=== PATIENT | female | born 1960 | race Caucasian/White ===

== ENCOUNTER → 2018-08-10 | Outpatient (CLI) | payer OTHER ==
[~2018-08-10] VITALS: Ht 167.6 cm; Wt 85.3 kg
[~2018-08-10] MED LIST: ACETAMINOPHEN325 M1 PO; ADVIL PO; ANEFRIN NASAL; BACTRIM 400-801 EACH PO; CELEXA 10 MG TA10 MG PO; CELEXA 20 MG TA20 M1 PO; CENTRUM SILVER1 EAC1 PO; CENTRUM SILVER1 EAC4 PO; CLARITIN10 MG PO; COLACE100 MG PO; COUMADIN 1MG TAB1 M1 PO; COUMADIN 4 MG TA4 M1 PO; COUMADIN 5 MG TA5 M1 PO; DECONGESTANT NA15 ML SPRAY; DESYREL50 MG PO; DULOXETINE HCL60 MG PO; ENOXAPARIN100 MG/1 M SUBQ; ENOXAPARIN80 MG/0.8; FEMARA2.5 MG PO; FLONASE 0.05%50 MCG NASAL; GINKGO BILOBA120 M1 PO; IBUPROFEN 600600 M1 PO; IP-6 INOSITOL PO; JANTOVEN2 MG PO; LETROZOLE2.5 MG PO; MEDROLDOSEPACK PO; MOBIC7.5 MG PO; MOTION RELIEF25 MG PO; NASAL DECONGEST10 MG IH; NEOMYCIN/BACIT3.5 G1; NICOTINE1 EAC1 TD; NOLVADEX10 MG PO; NOLVADEX20 MG PO; NORCO 5-325 TA1 EACH PO; NORFLEX100 MG PO; PERCOCET 7.5-31 EACH PO; PREDNISONE 20 M20 MG PO; PYRIDOXINE HCL100 MG PO; SENNA PO; SUPER B COMPLE1 EAC2 PO; TRAMADOL 50 MG50 MG PO; TRAZODONE 150150 M1 PO; TRAZODONE PO; UNICOMPLEX M TA1 TA1 PO; VITAMIN B-12500 MCG PO; VITAMIN B-6250 MG PO; VITAMIN D1000 UNI1 PO; VITAMIN D31000 UNI2 PO; XANAX 0.5 MG0.5 MG PO; ZANAFLEX4 MG PO; [UNRECOGNIZED DRUG - REMARK]
--- NOTE | ~2018-08-10 | PATH ---
[facility] [address] [place] [address] PATHOLOGY RPT PROCEDURE Name: JAMARI VALLES Room #: REG CL M..#: [id number] Admission: 08/10/18 Date of : 60 Discharge: Report #: [id number] Path Case #: [id number] [facility] Accession Number: [id number] . 01 Material submitted: . PART A: RANDOM BX OF COLON R/O MICROSCOPIC COLITIS PART B: BX OF POLYP IN TRANSVERSE COLON . 01 Clinical history: . Pre-OP DX: Abdominal pain, diarrhea, HX colon cancer Post-OP DX: Sigmoid colon polyp, diverticulosis, Hx of colon cancer, acute diverticulitis . 02 Diagnosis: A. Colonic mucosa "random colon biopsies": - No obvious diagnostic changes. - There is no evidence of acute cryptitis, granulomas, adenomatous change, changes of microscopic colitis or malignancy. . B. Colonic mucosa "biopsy of polyp in transverse colon": - Tubular adenoma. - There is no evidence of high-grade dysplasia or malignancy. (SHA:pit 08/11/2018) QTP/08/11/2018 . 02 Electronically signed: . Gabriele Lund MD, Pathologist NPI- [id number] . 01 Gross description: . A. Received in formalin labeled "Jamari Valles, random colon BX, rule out microscopic colitis," are 4 segments of spring soft tissue measuring 1.3 x 0.6 x 0.2 cm in aggregate dimensions and ranging from 0.3 to 0.7 cm in maximum dimension. The specimen is submitted entirely in cassette A1. . B. Received in formalin labeled "ReenaJamari, BX of polyp in transverse colon," is a single segment of spring soft tissue measuring 0.5 cm in maximum dimension. The specimen is entirely submitted in cassette B1. (TSD; 08/10/2018) TOB/TOB . 02 Pathologist provided ICD-10: D12.3, R10.9 . 02 CPT . 716669, 129917 Specimen Comment: A courtesy copy of [place] [address] PATHOLOGY RPT PROCEDURE Name: JAMARI VALLES MAHESH Room #: REG CLRafael Gunter#: [id number] Admission: 08/10/18 Date of : 60 Discharge: Report #: [id number] Path Case #: [id number] Specimen Comment: [phone], . Specimen Comment: Report sent to / DR BURCIAGA Specimen Comment: A duplicate report has been generated due to demographic updates. Performed at: [address], [place] [id number] MD Kee Tobar MD Phone: [phone] Performed at: [address] [id number] MD Va Méndez MD Phone: [phone]
--- NOTE | ~2018-08-10 | P ---
[facility] [address] PROCEDURE REPORT Name: JAMARI SHAH Room #: REG [facility]#: [id number] Admission: 08/10/18 Attend Phys: Dominik Valentine Discharge: Date of : 60 Report #: [id number] THIS REPORT FOR: //name// CC: Dominik Mehta MD DATE OF SERVICE: 08/10/2018 PROCEDURE PERFORMED: Colonoscopy with biopsies. HISTORY OF PRESENT ILLNESS: The patient is a 58-year-old female with previous history of colon cancer in 2010, status post right hemicolectomy, presents for routine followup. She does report low crampy abdominal pain as well as intermittent diarrhea. She denies any blood in her stools. No fevers or chills. The symptoms have been ongoing for the past 2-3 weeks. Plan is for colonoscopy. DESCRIPTION OF PROCEDURE: The risks and benefits of the procedure were explained to the patient, those risks including but not limited to bleeding, perforation, and the risk of sedation. She understood these risks and gave informed consent. Sedation was given using propofol per Anesthesia. Next, a digital rectal exam was initially performed, which was normal. Next, using a standard Olympus colonoscope, the scope was placed in the patient's anus and advanced under direct vision to the right colon, at which point, the surgical anastomosis was noted. This was well healed and widely patent. In the transverse colon, a 4 mm sessile polyp was noted and removed with cold forceps. Because of her history of recent diarrhea, random colon biopsies were also obtained today to rule out the possibility of microscopic colitis. Multiple diverticula were noted in the descending and sigmoid colon, one area with acute diverticulitis was noted in the sigmoid colon with inflammation and some purulent drainage. The rectal mucosa was normal. On retroflexion, small nonbleeding internal hemorrhoids were noted. The scope was then withdrawn and the procedure terminated. The patient tolerated the procedure well. IMPRESSION: 1. Surgical changes in the right colon again noted, consistent with right hemicolectomy. 2. Small transverse colon polyp. 3. Diverticulosis with one area of diverticulitis noted in the sigmoid colon. 4. Internal hemorrhoids. RECOMMENDATIONS: 1. Await biopsy results. 2. Repeat colonoscopy in 2 years. 3. We will treat with Cipro and Flagyl for the next [address] [address] PROCEDURE REPORT Name: JAMARI SHAH MAHESH Room #: REG CLRafael Gunter#: [id number] Admission: 08/10/18 Attend Phys: Dominik Valentine Discharge: Date of : 60 Report #: [id number] Thank you for allowing me to participate in her care. By: 1113 [id number] Dominik Chino MD /nt
== END | disposition home or self-care (01) ==
LOC: GI 08:47
DX: D12.3 Benign neoplasm of transverse colon (principal); K57.30 Diverticulosis of large intestine without perforation or abscess without bleeding; K64.8 Other hemorrhoids; G62.9 Polyneuropathy, unspecified; F17.210 Nicotine dependence, cigarettes, uncomplicated; Z85.828 Personal history of other malignant neoplasm of skin; Z87.19 Personal history of other diseases of the digestive system; Z85.038 Personal history of other malignant neoplasm of large intestine; Z98.0 Intestinal bypass and anastomosis status; Z85.3 Personal history of malignant neoplasm of breast; Z98.890 Other specified postprocedural states; Z79.899 Other long term (current) drug therapy; Z90.711 Acquired absence of uterus with remaining cervical stump; Z88.6 Allergy status to analgesic agent
CPT/HCPCS: 62110; 62900